=== PATIENT | female | born 1970 | race African-American/Black ===

== ENCOUNTER 2016-07-04 10:54 | Emergency (ER) | payer SELFPAY ==
--- NOTE | 2016-07-04 11:10 | Emergency Department Record ---
History of Present Illness - General Chief Complaint: Hypertension Stated Complaint: HIGH BLOOD PRESSURE Time Seen by Provider: 07/04/16 11:09 Source: Patient Mode of Arrival: Ambulatory Limitations: No limitations - History of Present Illness Initial Comments: The patient is here due to being concerned about her heart racing at times. She first noticed it last evening and was concerned about her BP. Due to that fact she decided to come to the ER for an EKG because heart disease runs in her family. The patient denies any CP, SOB, MARIIA, sweating, nausea, or vomiting. She also denies any MEJIAS or any CP with exertion. Per the patient she has been self detoxing off of her chronic pain medicines for the last 2 weeks. She has been on MS Contin and Soma for years due to chronic back pain and now has been weaning herself off those. She is having her chronic pain issues but no new pain. She denies any leg numbness, weakness or any bowel or bladder issues. MD Complaint: Other Onset/Timin -: Days(s) Timing: Unsure Improves With: Nothing Worsens With: Nothing Associated Symptoms: Denies other symptoms - [place] Coma Scale Eye Response: (4) Open spontaneously Motor Response: (6) Obeys commands Verbal Response: (5) Oriented [place] Total: 15 - Related Data Home Medications Medication Instructions Recorded Confirmed Last Taken Albuterol Sulfate [Ventolin Hfa] 1 - 2 puff IH .EVERY 4-6 HOURS PRN 09/04/1402/09 Unknown Previous Rx's Medication Instructions Recorded Carisoprodol [Soma] 350 mg PO QID #40 tablet 09/04/14 Naproxen [Naprosyn] 250 mg PO BID #14 tablet 07/04/16 Allergies Allergy/AdvReac Type Severity Reaction Status Date / Time ciprofloxacin [From Cipro] Allergy HYPERSENSIT Verified 11/27/13 06:02 IVITY ciprofloxacin HCl Allergy HYPERSENSIT Verified 11/27/13 06:02 [From Cipro] IVITY levofloxacin [From Levaquin] Allergy HYPERSENSIT Verified 11/27/13 06:02 IVITY Penicillins Allergy PT UNSURE Verified 11/27/13 06:02 OF REACTION Sulfa (Sulfonamide Allergy PT UNSURE Verified 07/04/16 11:08 Antibiotics) OF REACTION Travel Screening - Travel/Exposure Within Last 30 Days Have you traveled within the last 30 days?: No Review of Systems Constitutional: Denies: Chills, Fever Eyes: Denies: Eye discharge ENT: Denies: Congestion Respiratory: Denies: Cough, Dyspnea Past Medical History - SOCIAL HISTORY Smoking Status: Current every day smoker Alcohol Use: None Drug Use Detail:: Marijuana - RESPIRATORY Hx Respiratory Disorders: Yes Hx Bronchitis: Yes - CARDIOVASCULAR Hx Cardio Disorders: No - NEURO Hx Neuro Disorders: No - GI Hx GI Disorders: No - Hx Genitourinary Disorders: No - ENDOCRINE Hx Endocrine Disorders: No - MUSCULOSKELETAL Hx Musculoskeletal Disorders: Yes Hx Back Injury: Yes - PSYCH Hx Psych Problems: Yes Hx Depression: Yes - HEMATOLOGY/ONCOLOGY Hx Hematology/Oncology Disorders: No Family Medical History Any Significant Family History?: Yes Hx Heart Disease: Grandparents Physical Exam - General General Appearance: Alert, Oriented x3, Cooperative, No acute distress - Head Head exam: Atraumatic, Normocephalic, Normal inspection - Eye Eye exam: Normal appearance, PERRL - Neck Neck exam: Normal inspection, Full ROM. negative: Tenderness - Respiratory Respiratory exam: Normal lung sounds bilaterally. negative: Respiratory distress - Cardiovascular Cardiovascular Exam: Regular rate, Normal rhythm, Normal heart sounds, Tachycardia (mildly.) - GI/Abdominal GI/Abdominal exam: Soft, Normal bowel sounds. negative: Tenderness - Extremities Extremities exam: Normal inspection, Full ROM, Normal capillary refill. negative: Tenderness - Back Back exam: Reports: Normal inspection, Paraspinal tenderness (There is mild diffuse thoracic and lumbar tenderness which the patient states has been the same for over 10 years.) - Neurological Neurological exam: Alert, Normal gait, Oriented X3, Reflexes normal. negative: Abnormal gait, Motor sensory deficit Course Vital Signs 07/04/16 11:03 Temperature 98.1 F Pulse Rate 119 H Respiratory 16 Rate Blood Pressure 138/99 Pulse Ox 98 - Reevaluation(s) Reevaluation #1: The patient is doing much better presently. She is very relaxed now and her BP and HR are normal. I did discuss her CXR with her and she is refusing. She understands we could be missing a lung tumor or mass which is causing her pain but she is still refusing. She understands by NOT doing the xray she could have a delay in diagnosis of a cancer which could lead to premature or disability. 07/04/16 11:59 Reevaluation #2: I did place the patient on Naprosyn for her chronic pain and did discuss the need to see her PCP for further eval of her pain issues. 07/04/16 12:03 Medical Decision Making - Lab Data Result diagrams: 07/04/16 11:40 07/04/16 11:40 Disposition Disposition: Discharge Clinical Impression: Heart palpitations Disposition: Home, Self-Care Condition: (1) Good Instructions: Hypertension (ED) Additional Instructions: Please take Naprosyn for pain and please see your PCP for further evaluation or issues. Please return to the ER for any pain, trouble breathing or fevers. Prescriptions: Naproxen [Naprosyn] 250 mg PO BID #14 tablet Forms: Patient Portal Access Time of Disposition: 12:02
[2016-07-04 11:44] LABS: BASO % 0.4 % (0-6); EOS % 1.3 % (0-6); GRAN % 63.8 % (47-80); HEMOGLOBIN 14.6 gm/dl (11.6-16.0); LYMPH % 26.8 % (16-45); MEAN CORPUSCULAR HEMOGLOBIN 29.9 pg (27-33); MEAN CORPUSCULAR HGB CONC 33.2 g/dl (32-36); MEAN PLATELET VOLUME 8.1 fl (7.4-10.4); MONO % 7.7 % (0-9); PLATELET COUNT 304 K/uL (130-400); RED BLOOD COUNT 4.89 M/uL (3.80-5.40); RED CELL DISTRIBUTION WIDTH 12.1 % (11.5-14.5); WHITE BLOOD COUNT W/O DIFF 4.5 K/uL (4.2-12.2)
[2016-07-04 11:57] LABS: BLOOD UREA NITROGEN 8 mg/dL (7-17); CREATININE 0.8 mg/dL (0.52-1.04); EST GLOMERULAR FILTRATION RATE > 60 ml/min; GLUCOSE,RANDOM 105 mg/dL (70-110)
== END 2016-07-04 12:09 | disposition home or self-care (01) ==
LOC: ER 10:54
DX: R00.2 Palpitations (principal); I10 Essential (primary) hypertension; F17.210 Nicotine dependence, cigarettes, uncomplicated; G89.29 Other chronic pain; M54.6 Pain in thoracic spine; M54.5 Low back pain
CPT/HCPCS: 80048; 85025; 93005; 93010; 99284

== ENCOUNTER 2017-01-09 13:09 | Emergency (ER) | payer SELFPAY ==
[2017-01-09 13:53] LABS: BASO % 0.4 % (0-6); EOS % 1.3 % (0-6); GRAN % 66.2 % (47-80); HEMOGLOBIN 15.4 gm/dl (11.6-16.0); LYMPH % 24.8 % (16-45); MEAN CELL VOLUME 88.5 fl (81-97); MEAN PLATELET VOLUME 8.2 fl (7.4-10.4); MONO % 7.3 % (0-9); PLATELET COUNT 403 K/uL (130-400); RED BLOOD COUNT 4.97 M/uL (3.80-5.40); RED CELL DISTRIBUTION WIDTH 12.1 % (11.5-14.5)
--- NOTE | 2017-01-09 13:58 | Emergency Department Record ---
History of Present Illness - General Chief Complaint: Numbness Stated Complaint: RIGHT HAND/FACIAL NUMBNESS Time Seen by Provider: 01/09/17 13:30 Source: Patient Mode of Arrival: Ambulatory Limitations: No limitations - History of Present Illness Initial Comments: pt has had numbness and feeling cold in her right hand and face for 2-3 years. she states she has never had a ct. she states it is keeping her awake at night. Onset/Timin -: Year(s) Location: Right arm, Right face History of same: Yes Severity: Mild Quality: Intermittent Improves With: None Worsens With: None On Anticoagulants: No Associated Symptoms: Denies other symptoms Treatments Prior to Arrival: Aspirin - [place] Coma Scale Eye Response: (4) Open spontaneously Motor Response: (6) Obeys commands Verbal Response: (5) Oriented [place] Total: 15 - Symptoms of Stroke Symptoms of stroke: Numbness - Related Data Home Medications: Previous Rx's Medication Instructions Recorded Lorazepam [Ativan] 0.5 mg PO TID #7 tablet 01/09/17 Allergies/Adverse Reactions: Allergies Allergy/AdvReac Type Severity Reaction Status Date / Time ciprofloxacin [From Cipro] Allergy HYPERSENSIT Verified 01/09/17 13:21 IVITY ciprofloxacin HCl Allergy HYPERSENSIT Verified 01/09/17 13:21 [From Cipro] IVITY levofloxacin [From Levaquin] Allergy HYPERSENSIT Verified 01/09/17 13:21 IVITY Penicillins Allergy PT UNSURE Verified 01/09/17 13:21 OF REACTION Sulfa (Sulfonamide Allergy PT UNSURE Verified 01/09/17 13:21 Antibiotics) OF REACTION Travel Screening - Travel/Exposure Within Last 30 Days Have you traveled within the last 30 days?: No Review of Systems Reviewed: No additional complaints except as noted below Constitutional: Reports: As per HPI. Denies: Chills, Fever, Malaise, Night sweats, Weakness, Weight change Eyes: Reports: As per HPI. Denies: Eye discharge, Eye pain, Photophobia, Vision change ENT: Reports: As per HPI. Denies: Congestion, Dental pain, Ear pain, Epistaxis , Hearing loss, Throat pain Respiratory: Reports: As per HPI. Denies: Cough, Dyspnea, Hemoptysis, Stridor, Wheezes Cardiovascular: Reports: As per HPI. Denies: Arrhythmia, Chest pain, Dyspnea on exertion, Edema, Murmurs, Orthopnea, Palpitations, Paroxysmal nocturnal dyspnea, Rheumatic Fever, Syncope Endocrine: Reports: As per HPI. Denies: Fatigue, Heat or cold intolerance, Polydipsia, Polyuria Gastrointestinal: Reports: As per HPI. Denies: Abdominal pain, Constipation, Diarrhea, Hematemesis, Hematochezia, Melena, Nausea, Vomiting Genitourinary: Reports: As per HPI. Denies: Abnormal menses, Discharge, Dyspareunia, Dysuria, Frequency, Hematuria, Incontinence, Retention, Urgency Musculoskeletal: Reports: As per HPI. Denies: Arthralgia, Back pain, Gout, Joint swelling, Myalgia, Neck pain Skin: Reports: As per HPI. Denies: Bruising, Change in color, Change in hair/ nails, Lesions, Pruritus, Rash Neurological: Reports: As per HPI. Denies: Abnormal gait, Confusion, Headache, Numbness, Paresthesias, Seizure, Tingling, Tremors, Vertigo, Weakness Psychiatric: Reports: As per HPI. Denies: Anxiety, Auditory hallucinations, Depression, Homicidal thoughts, Suicidal thoughts, Visual hallucinations Hematological/Lymphatic: Reports: As per HPI. Denies: Anemia, Blood Clots, Easy bleeding, Easy bruising, Swollen glands Past Medical History - SOCIAL HISTORY Smoking Status: Current every day smoker Alcohol Use: Rare Drug Use: None - RESPIRATORY Hx Respiratory Disorders: Yes Hx Bronchitis: Yes - CARDIOVASCULAR Hx Cardio Disorders: No - NEURO Hx Neuro Disorders: No - GI Hx GI Disorders: No - Hx Genitourinary Disorders: No - ENDOCRINE Hx Endocrine Disorders: No - MUSCULOSKELETAL Hx Musculoskeletal Disorders: Yes Hx Back Injury: Yes - PSYCH Hx Psych Problems: Yes Hx Depression: Yes - HEMATOLOGY/ONCOLOGY Hx Hematology/Oncology Disorders: No Family Medical History Any Significant Family History?: Yes Hx Heart Disease: Grandparents Physical Exam - General General Appearance: Alert, Oriented x3, Cooperative, Mild distress - Head Head exam: Normal inspection - Eye Eye exam: Normal appearance, PERRL, EOMI Pupils: Normal accommodation - ENT ENT exam: Normal exam, Mucous membranes moist, Normal external ear exam, Normal orophraynx Ear exam: Normal external inspection. negative: External canal tenderness Nasal Exam: Normal inspection. negative: Discharge, Sinus tenderness Mouth exam: Normal external inspection, Tongue normal Teeth exam: Normal inspection. negative: Dental caries Throat exam: Normal inspection. negative: Tonsillar erythema, Tonsillar exudate - Neck Neck exam: Normal inspection, Full ROM. negative: Tenderness - Respiratory Respiratory exam: Normal lung sounds bilaterally. negative: Respiratory distress - Cardiovascular Cardiovascular Exam: Normal rhythm, Normal heart sounds, Tachycardia - GI/Abdominal GI/Abdominal exam: Soft, Normal bowel sounds. negative: Tenderness - Rectal Rectal exam: Deferred - exam: Deferred - Extremities Extremities exam: Normal inspection, Full ROM, Normal capillary refill. negative: Tenderness - Back Back exam: Reports: Normal inspection, Full ROM. Denies: Muscle spasm, Rash noted, Tenderness - Neurological Neurological exam: Alert, CN II-XII intact, Motor sensory deficit (decreased sensation to 3,4,5 fingers. from), Normal gait, Oriented X3 - Psychiatric Psychiatric exam: Normal affect, Normal mood - Skin Skin exam: Dry, Intact, Normal color, Warm Course Vital Signs 01/09/17 13:17 Temperature 98.3 F Pulse Rate 107 H Respiratory 18 Rate Blood Pressure 146/108 Pulse Ox 99 Medical Decision Making - Lab Data Result diagrams: 01/09/17 13:45 01/09/17 13:45 Disposition Disposition: Discharge Clinical Impression: Cervical radiculopathy, Anxiety Disposition: Home, Self-Care Condition: (1) Good Instructions: Cervical Radiculopathy (ED) Additional Instructions: follow up with family doctor. return sooner if worse. follow up with neurosurgeon Prescriptions: Lorazepam [Ativan] 0.5 mg PO TID #7 tablet Forms: Patient Portal Access Quality - Quality Measures Quality Measures: N/A - Blood Pressure Screening Does Patient Have Any of the Following: No Blood Pressure Classification: Hypertensive Reading Systolic Measurement: 146 Diastolic Measurement: 108 Screening for High Blood Pressure: < First Hypertensive BP, F/U Documented > [ G8950] First Hypertensive Follow-up Interventions: Follow-up with rescreen GT 1 day and LT 4 weeks.
[2017-01-09 14:08] LABS: ALB/GLOB RATIO 1.6 (1.1-1.8); ALBUMIN 4.5 g/dL (4.0-5.0); ALKALINE PHOSPHATASE 68 U/L (35-104); ALT/SGPT 15 U/L (<33); AST/SGOT 15 U/L (10.0-35.0); BLOOD UREA NITROGEN 7 mg/dL (6-20); CREATININE 0.6 mg/dL (0.5-0.9); EST GLOMERULAR FILTRATION RATE > 60 mL/min; GLUCOSE,RANDOM 96 mg/dL (74-109); TOTAL PROTEIN 7.4 g/dL (6.6-8.7)
[2017-01-09 14:29] LABS: ERYTHROCYTE SEDIMENTATION RATE 2 mm/hr (0-20)
--- NOTE | 2017-01-11 08:25 | CT SCAN REPORT ---
EXAM: CT OF THE HEAD WITHOUT CONTRAST HISTORY: RIGHT FACE AND RIGHT UPPER EXTREMITY NUMBNESS. TECHNIQUE: Routine noncontrast CT examination of the head was obtained. Comparison: No prior imaging of the head available for comparison. Same day noncontrast CT of the cervical spine. FINDINGS: The ventricles and subarachnoid spaces are normal in size. No area of abnormally increased or decreased attenuation is noted throughout the brain substance. The naranjo white interfaces are distinct. No abnormal extraaxial fluid collection demonstrated. No asymmetric density of the proximal aspects of the middle cerebral arteries. There is minor atherosclerotic calcification of the distal internal carotid arteries. The visualized paranasal sinuses and mastoid air cells are clear. The orbits as visualized are unremarkable. IMPRESSION: NO CT EVIDENCE OF ACUTE MAJOR VESSEL INFARCT, INTRACRANIAL HEMORRHAGE, NOR MASS. JOB NUMBER: [id number] [facility]
--- NOTE | 2017-01-11 08:58 | CT SCAN REPORT ---
EXAM: CT OF THE CERVICAL SPINE WITHOUT CONTRAST HISTORY: RIGHT FACE AND RIGHT UPPER EXTREMITY PAIN FOR TWO TO THREE YEARS. TECHNIQUE: Thin collimation helical CT examination of the cervical spine was performed without intravenous contrast. Coronal and sagittal reformatted images are generated and reviewed. Comparison: None. FINDINGS: There is normal bone mineralization. There is straightening of the normal cervical lordosis likely due to positioning or muscle spasm. There is minimal anterolisthesis of C3 on C4 measuring 2 mm. This likely relates to advanced facet arthropathy on the right. The vertebral bodies are otherwise normal in alignment and height. No acute fracture, destructive bone lesion or prevertebral soft tissue swelling. Multilevel disk space narrowing, and end plate spurring is present most pronounced at the C4-C5 and C5-C6 levels where the changes are moderate in degree. At the C2-C3 level: No gross osseous cervical spinal stenosis is seen. The left neural foramen is patent. There is mild right neural foraminal narrowing due to moderate to severe facet arthropathy. The left facet joint is maintained. At the C3-C4 level: There is posterior disk bulging causing ventral sac flattening and in association with congenital canal narrowing causes borderline to mild central canal stenosis. The left neural foramen is patent. There is mild to moderate right neural foraminal narrowing primarily due to advanced facet arthropathy. At the C4-C5 level: There is broad based posterior disk bulging with possible small superimposed disk protrusion causing ventral sac flattening and in association with congenital canal narrowing causes mild central canal stenosis. The right neural foramen is patent. There is likely mild left neural foraminal narrowing due to uncovertebral joint and facet joint spurring. At the C5-C6 level: Broad based posterior disk bulging is present with possible superimposed central-left paracentral disk protrusion. This causes ventral sac flattening with moderate central canal stenosis. Mild bilateral neural foraminal narrowing is present due to uncovertebral joint spurring and minor facet arthropathy. At the C6-C7 level: There is broad based posterior disk bulging present with probable mild central canal stenosis. Mild bilateral neural foraminal narrowing , left greater than right is present due to facet arthropathy and minor uncovertebral joint spurring. At the C7-T1 level: No gross disk abnormality is seen nor is there central canal stenosis. Mild bilateral neural foraminal narrowing suspected due to moderate uncovertebral joint spurring. Mild to moderate neural foraminal narrowing, left greater than right at the T1-T2 and T2-T3 levels primarily due to uncovertebral joint spurring. No cervical mass nor adenopathy. There is minor atherosclerotic calcification of the carotid bifurcations. IMPRESSION: 1. NO ACUTE FRACTURE, SUSPICIOUS SUBLUXATION, OR PREVERTEBRAL SOFT TISSUE SWELLING. 2. MULTILEVEL DEGENERATIVE DISK AND POSTERIOR ELEMENT CHANGES ASSOCIATED WITH STRAIGHTENING OF THE NORMAL CERVICAL LORDOSIS AND MINIMAL ANTEROLISTHESIS OF C3 ON C4. 3. THE DEGENERATIVE DISK CHANGES CAUSE MULTILEVEL CENTRAL CANAL STENOSIS, MODERATE AT THE C5-C6 LEVEL, MILD TO MODERATE AT THE C4-C5 LEVEL, MILD AT THE C6 -C7 LEVEL, AND BORDERLINE TO MILD AT THE C3-C4 LEVEL. 4. MULTILEVEL BILATERAL NEURAL FORAMINAL NARROWING OF VARYING DEGREES SECONDARY TO FACET DEGENERATIVE CHANGE AND UNCOVERTEBRAL JOINT SPURRING. JOB NUMBER: [id number] [facility]
== END 2017-01-09 15:46 | disposition home or self-care (01) ==
LOC: ER 13:09
DX: M54.12 Radiculopathy, cervical region (principal); F41.9 Anxiety disorder, unspecified
CPT/HCPCS: 70450; 72125; 80053; 85025; 85651; 99283

== ENCOUNTER 2018-05-14 17:35 | Emergency (ER) | payer SELFPAY ==
--- NOTE | 2018-05-14 17:48 | Emergency Department Record ---
History of Present Illness - General Chief Complaint: Hypertension Stated Complaint: BLOOD PRESSURE Time Seen by Provider: 05/14/18 17:38 Source: Patient Mode of Arrival: Ambulatory Limitations: No limitations - History of Present Illness Initial Comments: 48 yo female presents to ED for evaluation of her blood pressure, states that she is feeling anxious about her blood pressure since lunch-time today. Patient denies a history of HTN at her baseline, does not see a PCP regularly. Patient reports "electrical shocks" in her chest, denies chest pain or pressure , and denies pain with deep inspiration. Patient denies health problems other than chronic back and neck pain as well as bronchitis. MD Complaint: Other Onset/Timin -: Hour(s) History of Same: Yes History of Trauma: No Improves With: Nothing Worsens With: Nothing Associated Symptoms: Denies other symptoms - [place] Coma Scale Eye Response: (4) Open spontaneously Motor Response: (6) Obeys commands Verbal Response: (5) Oriented [place] Total: 15 - Related Data Home Medications Medication Instructions Recorded Confirmed Last Taken No Home Med [NO HOME MEDS] 05/14/18 05/14/18 Unknown Allergies Allergy/AdvReac Type Severity Reaction Status Date / Time ciprofloxacin [From Cipro] Allergy HYPERSENSIT Verified 05/14/18 17:46 IVITY ciprofloxacin HCl Allergy HYPERSENSIT Verified 05/14/18 17:46 [From Cipro] IVITY levofloxacin [From Levaquin] Allergy HYPERSENSIT Verified 05/14/18 17:46 IVITY Penicillins Allergy PT UNSURE Verified 05/14/18 17:46 OF REACTION Sulfa (Sulfonamide Allergy PT UNSURE Verified 05/14/18 17:46 Antibiotics) OF REACTION Review of Systems Constitutional: Denies: Chills, Fever, Malaise, Night sweats Eyes: Denies: Eye discharge, Eye pain ENT: Denies: Congestion, Ear pain, Epistaxis Respiratory: Denies: Cough, Dyspnea Cardiovascular: Denies: Chest pain, Dyspnea on exertion Endocrine: Denies: Fatigue, Heat or cold intolerance Gastrointestinal: Denies: Abdominal pain, Nausea, Vomiting Genitourinary: Denies: Incontinence, Retention Musculoskeletal: Denies: Arthralgia, Back pain Skin: Denies: Bruising, Change in color Neurological: Denies: Abnormal gait, Confusion, Headache, Tingling Psychiatric: Reports: Anxiety Hematological/Lymphatic: Denies: Anemia, Blood Clots Past Medical History - SOCIAL HISTORY Smoking Status: Current every day smoker Drug Use: None - RESPIRATORY Hx Respiratory Disorders: Yes Hx Bronchitis: Yes - CARDIOVASCULAR Hx Cardio Disorders: No - NEURO Hx Neuro Disorders: No - GI Hx GI Disorders: No - Hx Genitourinary Disorders: No - ENDOCRINE Hx Endocrine Disorders: No - MUSCULOSKELETAL Hx Musculoskeletal Disorders: Yes Hx Back Injury: Yes - PSYCH Hx Psych Problems: Yes Hx Depression: Yes - HEMATOLOGY/ONCOLOGY Hx Hematology/Oncology Disorders: No Family Medical History Hx Heart Disease: Grandparents Physical Exam - General General Appearance: Alert, Oriented x3, Cooperative, Anxious Limitations: No limitations - Head Head exam: Atraumatic, Normocephalic, Normal inspection Head exam detail: negative: Abrasion, Contusion, Junior's sign, General tenderness, Hematoma, Laceration - Eye Eye exam: Normal appearance. negative: Conjunctival injection, Periorbital swelling, Periorbital tenderness, Scleral icterus - ENT Ear exam: negative: Auricular hematoma, Auricular trauma Nasal Exam: negative: Active bleeding, Discharge, Dried blood, Foreign body Mouth exam: negative: Drooling, Laceration, Muffled voice, Tongue elevation Teeth exam: negative: Dental caries, Dental tenderness #, Fractured tooth # Throat exam: negative: Tonsillar erythema, Tonsillomegaly, Tonsillar exudate, R peritonsillar mass - Neck Neck exam: Normal inspection. negative: Meningismus, Tenderness - Respiratory Respiratory exam: Normal lung sounds bilaterally. negative: Respiratory distress, Rhonchi, Stridor, Wheezes - Cardiovascular Cardiovascular Exam: Regular rate, Normal rhythm, Normal heart sounds - GI/Abdominal GI/Abdominal exam: Soft. negative: Distended, Rebound, Rigid, Tenderness - Rectal Rectal exam: Deferred - exam: Deferred - Extremities Extremities exam: Normal inspection. negative: Pedal edema, Tenderness - Back Back exam: Denies: CVA tenderness (R), CVA tenderness (L) - Neurological Neurological exam: Alert, Normal gait, Oriented X3 - Psychiatric Psychiatric exam: Anxious - Skin Skin exam: Normal color. negative: Abrasion Type of lesion: negative: abrasion Course - Reevaluation(s) Reevaluation #1: 05/14/18 18:01 EKG: NSR 85 Normal axis, normal intervals No acute ST-T wave changes Blood pressure in ED 138/100 Patient is resting comfortably, previous labs reviewed from 2017 revealing normal renal function. Patient is well appearing, no evidence for hypertension emergency on examination. Patient is resting comfortably, smiling, and appears stable for discharge without further ED evaluation. Patient was updated on her EKG findings, recording a blood pressure log over the next 1-2 weeks, and the importance of follow-up and establishment with a PCP. Will give referral sheet for the patient to follow-up with PCP in 1 week as directed. Disposition Disposition: Discharge Clinical Impression: Elevated blood pressure reading Disposition: Home, Self-Care Condition: (2) Stable Instructions: Heart Healthy Diet (ED) Additional Instructions: Return to ED if your symptoms worsen or if you have any concerns. Call a PCP from the referral list for further evaluation in 1 week. Forms: Patient Portal Access Time of Disposition: 18:04 Quality - Quality Measures Quality Measures: N/A - Blood Pressure Screening Does Patient Have Any of the Following: No Blood Pressure Classification: Hypertensive Reading Systolic Measurement: 138 Diastolic Measurement: 100 Screening for High Blood Pressure: < First Hypertensive BP, F/U Documented > [ G8950] First Hypertensive Follow-up Interventions: Referral to alternative/primary care provider.
== END 2018-05-14 18:30 | disposition home or self-care (01) ==
LOC: ER 17:35
DX: I10 Essential (primary) hypertension (principal); F17.210 Nicotine dependence, cigarettes, uncomplicated
CPT/HCPCS: 93005; 93010; 99284

== ENCOUNTER 2018-09-06 11:36 | Emergency (ER) | payer BC ==
--- NOTE | 2018-09-06 12:02 | Emergency Department Record ---
History of Present Illness - General Chief Complaint: Back Pain/Injury Stated Complaint: BACK PAIN Time Seen by Provider: 09/06/18 11:55 Source: Patient Mode of Arrival: Ambulatory Limitations: No limitations - History of Present Illness Initial Comments: 48 yo female presents with back pain for about 4 months. No specific injury. The pain sometime goes down the left leg. No changes in bowel or bladder function. When the pain radiates it goes to the toes. No current numbness or weakness. No fevers. No back surgery history. She saw Dr Seals for the back pain but has not followed up. She reports she has had long standing neck and back issues for many years. No surgery but she has had MRI's of both. MD Complaint: Back pain -: Unknown Similar Symptoms Previously: Yes Place: Home Radiation: Left leg Severity scale (1-10): 10 Quality: Aching Consistency: Constant Improves With: None Worsens With: None Context: Unknown Associated Symptoms: Denies other symptoms - Related Data Previous Rx's Medication Instructions Recorded Cyclobenzaprine HCl [Flexeril] 10 mg PO TID #20 tablet 09/06/18 Hydrocodone/Acetaminophen [[place] 1 tab PO Q6H PRN #6 tab 09/06/18 5mg/325mg] Methylprednisolone [Medrol Dose 4 mg PO DAILY #1 tab.ds.pk 09/06/18 Pack] Nitrofurantoin Monohyd/M-Cryst 100 mg PO BID #6 capsule 09/06/18 [Macrobid 100 mg Capsule] Allergies Allergy/AdvReac Type Severity Reaction Status Date / Time ciprofloxacin [From Cipro] Allergy HYPERSENSIT Unverified 08/26/18 14:44 IVITY ciprofloxacin HCl Allergy HYPERSENSIT Verified 09/06/18 11:52 [From Cipro] IVITY levofloxacin [From Levaquin] Allergy HYPERSENSIT Unverified 08/26/18 14:44 IVITY Penicillins Allergy PT UNSURE Unverified 08/26/18 14:44 OF REACTION Sulfa (Sulfonamide Allergy PT UNSURE Unverified 08/26/18 14:44 Antibiotics) OF REACTION Travel Screening - Travel/Exposure Within Last 30 Days Have you traveled within the last 30 days?: No Review of Systems Constitutional: Denies: Chills, Fever, Malaise, Weakness Eyes: Denies: Eye discharge, Eye pain, Vision change ENT: Denies: Congestion Respiratory: Denies: Cough, Dyspnea Cardiovascular: Denies: Chest pain, Palpitations, Syncope Endocrine: Denies: Fatigue Gastrointestinal: Denies: Abdominal pain, Diarrhea, Nausea, Vomiting Genitourinary: Denies: Dysuria, Urgency Musculoskeletal: Reports: Back pain. Denies: Arthralgia, Joint swelling, Myalgia, Neck pain Skin: Denies: Bruising, Change in color, Rash Neurological: Denies: Headache, Numbness, Weakness Psychiatric: Denies: Anxiety Hematological/Lymphatic: Denies: Easy bleeding, Easy bruising Past Medical History - SOCIAL HISTORY Smoking Status: Current every day smoker Alcohol Use: None Drug Use: None - RESPIRATORY Hx Respiratory Disorders: Yes Hx Bronchitis: Yes - CARDIOVASCULAR Hx Cardio Disorders: No - NEURO Hx Neuro Disorders: No - GI Hx GI Disorders: No - Hx Genitourinary Disorders: No - ENDOCRINE Hx Endocrine Disorders: No - MUSCULOSKELETAL Hx Musculoskeletal Disorders: Yes Hx Back Injury: Yes - PSYCH Hx Psych Problems: Yes Hx Depression: Yes - HEMATOLOGY/ONCOLOGY Hx Hematology/Oncology Disorders: No Family Medical History Any Significant Family History?: Yes Hx Heart Disease: Grandparents Physical Exam - General General Appearance: Alert, Oriented x3, Cooperative, No acute distress Limitations: No limitations - Head Head exam: Atraumatic, Normal inspection - Eye Eye exam: Normal appearance. negative: Conjunctival injection, Scleral icterus - ENT ENT exam: Normal exam, Mucous membranes moist Ear exam: Normal external inspection Nasal Exam: Normal inspection Mouth exam: Normal external inspection - Neck Neck exam: Normal inspection - Respiratory Respiratory exam: Normal lung sounds bilaterally. negative: Respiratory dis tress - Cardiovascular Cardiovascular Exam: Regular rate, Normal rhythm, Normal heart sounds - GI/Abdominal GI/Abdominal exam: Soft. negative: Distended, Guarding, Tenderness - Rectal Rectal exam: Deferred - exam: Deferred - Extremities Extremities exam: Normal inspection - Back Back exam: Reports: CVA tenderness (L), Full ROM, Paraspinal tenderness. Denie s: CVA tenderness (R), Muscle spasm, Vertebral tenderness - Neurological Neurological exam: Alert, Normal gait, Oriented X3, Other (Normal straight leg raise). negative: Abnormal gait, Altered, Motor sensory deficit - Psychiatric Psychiatric exam: Normal affect, Normal mood. negative: Agitated, Anxious - Skin Skin exam: Dry, Intact, Normal color, Warm Course Vital Signs 06/14/19 11:54 Temperature 99.0 F Pulse Rate [ 91 H Pulse Ox Probe] Respiratory 18 Rate Blood Pressure 128/94 [Left Arm] Pulse Ox 97 - Reevaluation(s) Reevaluation #1: 09/06/18 12:43 UA was reviewed. N-, LE-, WBC 0-2, RBC 0-2, Few epi's and few bacteria 09/06/18 13:58 XR with multi level degenerative changes. No acute process The patient was given the results and advised to follow up with her PCP for close follow up and recheck. I advised she may need an MRI if the pain does not resolved since it is going down the leg. Disposition Disposition: Discharge Clinical Impression: Lumbar pain Sciatica Qualifiers: Laterality: left Qualified Code(s): M54.32 - Sciatica, left side Disposition: Home, Self-Care Condition: (1) Good Instructions: Low Back Strain (ED) Additional Instructions: Call your doctor for the next available follow up appointment If the pain continues you may need follow up therapy or testing (MRI) Review this ER visit and the tests performed with your family doctor Return to the ER for a recheck if worse, any new concerns or questions Take the prescriptions provided as directed Prescriptions: Cyclobenzaprine HCl [Flexeril] 10 mg PO TID #20 tablet Nitrofurantoin Monohyd/M-Cryst [Macrobid 100 mg Capsule] 100 mg PO BID #6 capsule Methylprednisolone [Medrol Dose Pack] 4 mg PO DAILY #1 tab.ds.pk Hydrocodone/Acetaminophen [[place] 5mg/325mg] 1 tab PO Q6H PRN #6 tab PRN Reason: Pain - General Forms: Patient Portal Access Time of Disposition: 13:59 Quality - Quality Measures Quality Measures: N/A - Blood Pressure Screening Does Patient Have Any of the Following: No Blood Pressure Classification: Hypertensive Reading Systolic Measurement: 128 Diastolic Measurement: 94 Screening for High Blood Pressure: < Pre-Hypertensive BP, F/U Documented > [[id number]] Pre-Hypertensive Follow-up Interventions: Referral to alternative/primary care provider.
[2018-09-06 12:12] LABS: URINE APPEARANCE CLEAR; URINE BILIRUBIN NEGATIVE (NEGATIVE); URINE BLOOD TRACE-I (NEGATIVE); URINE COLOR YELLOW; URINE GLUCOSE (UA) NEGATIVE (NEGATIVE); URINE KETONE NEGATIVE (NEGATIVE); URINE LEUKOCYTE ESTERASE NEGATIVE (NEGATIVE); URINE NITRITE NEGATIVE (NEGATIVE); URINE PROTEIN NEGATIVE (NEGATIVE); URINE UROBILINOGEN 0.2 E.U./dL (0.20 - 1.00)
[2018-09-06 12:22] LABS: URINE BACTERIA FEW; URINE RBC 0 - 2 (NONE SEEN); URINE WBC 0 - 2 (0-2/hpf)
--- NOTE | 2018-09-08 22:27 | RADIOLOGY REPORT ---
EXAM: LUMBAR SPINE W/OBLIQUES HISTORY: BACK PAIN FOR FOUR MONTHS. COMPARISON: None. TECHNIQUE: AP, lateral, and bilateral obliques. ENCOUNTER: Initial. FINDINGS: Five lumbar vertebral bodies with a mild dextroconvex curvature centered at L3. Alignment and vertebral body heights are maintained. Severe disc space narrowing with degenerative endplate changes at L2-3 and L3-4 with mild narrowing at L4-5 and L5-S1. Facet arthropathy throughout the lumbar spine. IMPRESSION: 1. NO EVIDENCE FOR LUMBAR SPINE COMPRESSION FRACTURE. 2. SEVERE MULTILEVEL DEGENERATIVE CHANGES. JOB NUMBER: [id number] MTDD
== END 2018-09-06 14:23 | disposition home or self-care (01) ==
LOC: ER 11:36
DX: M54.42 Lumbago with sciatica, left side (principal); F17.210 Nicotine dependence, cigarettes, uncomplicated
CPT/HCPCS: 72110; 81001; 99283; 99284